=== PATIENT | female | born 1935 | race African-American/Black ===

== ENCOUNTER → 2022-07-03 | Day surgery (SDC) | payer MEDICARE ==
[~2022-07-03] VITALS: Ht 170.2 cm; Wt 59.9 kg
[~2022-07-03] MED LIST: ACETAMINOPHEN 325MG TABLET PO PRN; ALLO300T2 PO; AMLO-337 MT; AMLODIPINE 10MG TABLET PO NR; ASPI-1160 PO; ASPI-1406 PO; ASPIRIN/SOD BICARB/CITRIC ACID 324MG TAB EFF ONE; ATROPINE SULFATE 1MG/10ML SYR IV PRN; DICL75TA5 PO; DONE10TA11 PO; FENTANYL CITRATE/PF 50MCG/ML 2ML VIAL ONE; HEPARIN SODIUM 1,000 UNIT/1ML VIAL IV ONE; HYDR12.54 PO; HYDRALAZINE 20MG/ML VIAL IV NR; IODIXANOL 320MG/ML 100 ML BOTTLE IV ONE; LEVO88TA7 PO; LIDOCAINE HCL/PF 2% 20MG/ML 5 ML/VIAL ONE; LISI40TA13 PO; LISINOPRIL 40MG TABLET PO NR; METO-411 PO; MIDAZOLAM HCL 2 MG/2 ML VIAL ONE; MORPHINE SULFATE 2 MG/ML CPJ (NOT FOR IM USE) IV PRN; NALOXONE HCL 0.4MG/ML VIAL IV PRN; NICARDIPINE 100MCG/ML 10ML VIAL (CATH LAB) IV ONE; NITROGLYCERIN 50MCG/ML 10ML VIAL (CATH LAB) IV ONE; ONDANSETRON HCL 4MG/2ML INJ IV PRN; ROSU20TA2 PO
== END | disposition home or self-care (01) ==
LOC: CCL 07:05
PROVIDERS: ATTEND Specialist
DX: I25.10 Atherosclerotic heart disease of native coronary artery without angina pectoris (principal); I11.9 Hypertensive heart disease without heart failure; E78.5 Hyperlipidemia, unspecified; Z79.82 Long term (current) use of aspirin; Z79.899 Other long term (current) drug therapy; Z98.890 Other specified postprocedural states
CPT/HCPCS: 93460; C1769; C1893; J0360; J1644; J2250; J3010; J3490; Q9967